=== PATIENT | male | born 1945 | race Caucasian/White ===

== ENCOUNTER 2023-07-28 09:13 | Emergency (ER) | payer OTHER ==
[~2023-07-28] VITALS: Ht 170.1 cm; Wt 76.2 kg
[2023-07-28] MEDS ORDERED: ATORVASTATIN CA80 M1 PO (10:41)
[2023-07-28] MEDS ORDERED: ASPIRIN81 M1 PO (10:41)
[2023-07-28] MEDS ORDERED: VITAMIN D325 MCG PO (10:42)
[2023-07-28] MEDS ORDERED: FOLIC ACID-VIT1 EACH PO (10:42)
[2023-07-28] MEDS ORDERED: Imdur SA60 MG PO (10:43)
[2023-07-28] MEDS ORDERED: OMEPRAZOLE20 M3 PO (10:43)
[2023-07-28] MEDS ORDERED: TAMSULOSIN HCL0.4 MG PO (10:43)
[2023-07-28] MEDS ORDERED: NITROGLYCERIN0.4 MG PO (10:44)
[2023-07-28] MEDS ORDERED: FINASTERIDE5 M1 PO (10:44)
[2023-07-28 10:59] LABS: BASO % 0.2 % (0.0-1.0); HEMATOCRIT 43.8 % (42.0-52.0); LYMPH # 0.6 10*3/uL (1.3-4.4); LYMPH % 11.1 % (27.0-41.0); MEAN CELL VOLUME 91.6 fl (80.0-94.0); MEAN CORPUSCULAR HGB 31.2 pg (27.0-31.0); MEAN PLATELET VOLUME 11.6 fl (9.6-12.3); MONO # 0.9 10*3/uL (0.1-1.0); MONO % 16.5 % (3.0-9.0); NEUT # 3.9 10*3/uL (2.3-7.9); PLATELET COUNT AUTOMATED 103 10*3/uL (130-400); RED BLOOD COUNT 4.78 10*6/uL (4.50-5.90); RED CELL DISTRI WIDTH 12.5 % (0-14.5); WHITE BLOOD COUNT 5.4 10*3/uL (4.8-10.8)
[2023-07-28 11:21] LABS: ALKALINE PHOSPHATASE 68 U/L (46-116); BUN 18 mg/dl (9-23); CHLORIDE 100 mmol/L (98-107); LIPASE 33 U/L (12-53); POTASSIUM 3.4 mmol/L (3.4-5.1); SGPT/ALT 21 U/L (5-49); TOTAL PROTEIN 7.8 gm/dL (6.0-8.0)
[2023-07-28 11:36] LABS: ETHYL ALCOHOL < 3.0 mg/dl (<3)
[2023-07-28 12:45] LABS: BILIRUBIN Negative (Negative); BLOOD Trace-Lysed (Negative); CLARITY Clear (Clear); COLOR Dark Yellow (Yellow); GLUCOSE Negative (Negative); KETONE Negative (Negative); LEUKO ESTERASE Negative (Negative); NITRITE Negative (Negative); PH 5.5 (4.5-8.0); SPECIFIC GRAVITY >= 1.030 (1.001-1.030)
[2023-07-28 12:51] LABS: URINE AMPHETAMINES Negative (1000ng/ml); URINE BARBITURATES Negative (200ng/ml); URINE BENZODIAZEPINES Negative (200ng/ml); URINE CANNABINOIDS (THC) Negative (50ng/ml); URINE COCAINE Negative (300ng/ml); URINE METHADONE Negative (300ng/ml); URINE OPIATES Negative (300ng/ml); URINE PHENCYCLIDINE Negative (25ng/ml)
[2023-07-28 12:56] LABS: MUCOUS 1+
[2023-07-28] MEDS ORDERED: OMNICEF300 MG PO (13:55)
[2023-07-28] MEDS ORDERED: TAMIFLU 75MG CA75 MG PO (13:55)
== END 2023-07-28 14:30 | disposition home or self-care (01) ==
LOC: ED 09:13
PROVIDERS: Family Medicine
DX: J10.1 Influenza due to other identified influenza virus with other respiratory manifestations (principal); R55 Syncope and collapse; I25.2 Old myocardial infarction; Z86.73 Personal history of transient ischemic attack (TIA), and cerebral infarction without residual deficits; Z20.822 Contact with and (suspected) exposure to COVID-19

== ENCOUNTER 2024-09-14 16:28 | Emergency (ER) | payer OTHER ==
[~2024-09-14] VITALS: Ht 170.1 cm; Wt 75.7 kg
[~2024-09-14 16:28] MED LIST: ASPIRIN81 M1 PO; ATORVASTATIN CA80 M1 PO; FINASTERIDE5 M1 PO; FOLIC ACID-VIT1 EACH PO; Imdur SA60 MG PO; NITROGLYCERIN0.4 MG PO; OMEPRAZOLE20 M3 PO; OMNICEF300 MG PO; TAMIFLU 75MG CA75 MG PO; TAMSULOSIN HCL0.4 MG PO; VITAMIN D325 MCG PO
[2024-09-14] MEDS ORDERED: Ondansetron Hydrochloride 4 MG/2 ML VIAL IV ONE (16:55)
[2024-09-14] MEDS ORDERED: SODIUM CHLORIDE 0.9% 1,000 ML IV ONE (16:55)
[2024-09-14] MEDS ORDERED: MORPHINE Sulfate 2 MG/ML SYR IV ONE (16:55)
[2024-09-14 17:23] LABS: BASO % 0.5 % (0.0-1.0); EOS # 0.2 10*3/uL (0.0-0.4); EOS % 1.8 % (1.0-4.0); HEMATOCRIT 43.3 % (42.0-52.0); MEAN CELL VOLUME 92.1 fl (80.0-94.0); MEAN CORPUSCULAR HGB 30.9 pg (27.0-31.0); MEAN CORPUSCULAR HGB CONC 33.5 g/dl (33.0-37.0); MEAN PLATELET VOLUME 11.5 fl (9.6-12.3); MONO % 11.9 % (3.0-9.0); NEUT # 5.6 10*3/uL (2.3-7.9); NEUT % 63.8 % (47.0-73.0); PLATELET COUNT AUTOMATED 137 10*3/uL (130-400); RED CELL DISTRI WIDTH 12.1 % (0-14.5); WHITE BLOOD COUNT 8.7 10*3/uL (4.8-10.8)
[2024-09-14 17:44] LABS: BUN 12 mg/dl (9-23); CHLORIDE 102 mmol/L (98-107); POTASSIUM 3.9 mmol/L (3.4-5.1)
== END 2024-09-14 18:08 | disposition home or self-care (01) ==
LOC: ED 16:28
PROVIDERS: Emergency Medicine
DX: R07.89 Other chest pain (principal); I25.2 Old myocardial infarction; I25.10 Atherosclerotic heart disease of native coronary artery without angina pectoris; E78.00 Pure hypercholesterolemia, unspecified; Z95.1 Presence of aortocoronary bypass graft; Z86.73 Personal history of transient ischemic attack (TIA), and cerebral infarction without residual deficits